=== PATIENT | female | born 1975 | race Caucasian/White ===

== ENCOUNTER 2016-05-04 21:41 | Emergency (ER) | payer OTHER ==
[~2016-05-04] VITALS: Ht 175.3 cm; Wt 81.8 kg
[~2016-05-04 21:41] MED LIST: AMOXICILLIN 50500 MG PO; CEPHALEXIN500 M1 PO; KETOPROFEN75 MG PO; LORTAB 5/500 501 TAB PO; MACROBID 1100 MG/CAP PO; METRONIDAZOLE500 MG PO; MOTRIN 800800 MG/TAB PO; NO HOME MEDICATIONS; NORCO 325 MG-51 TAB PO; NORCO 325 MG-7.1 TAB PO; PEPCID 20MG TAB20 MG PO; PHENERGAN 25 TA25 MG PO; PREDNISONE10 MG PO; PREDNISONE20 MG PO; PYRIDIUM200 M1 PO
[2016-05-04 21:54] VITALS: BP 140/78; TEMP 98.2
[2016-05-05 00:11] VITALS: PULSE 78
== END 2016-05-05 00:11 | disposition home or self-care (01) ==
LOC: COL.ER 21:41
DX: S90.122A Contusion of left lesser toe(s) without damage to nail, initial encounter (principal); S93.505A Unspecified sprain of left lesser toe(s), initial encounter; W22.03XA Walked into furniture, initial encounter; Y92.009 Unspecified place in unspecified non-institutional (private) residence as the place of occurrence of the external cause
CPT/HCPCS: J1885

== ENCOUNTER 2016-10-09 16:28 | Emergency (ER) | payer OTHER ==
[~2016-10-09] VITALS: Ht 175.3 cm; Wt 95.5 kg
[2016-10-09 16:30] VITALS: TEMP 97.3
[2016-10-09 17:13] LABS: BASO % 0.2 % (0.0-2.0); EOS # 0.1 (0.0-0.7); EOS % 0.8 % (0-4.0); GRAN # 9.9 (1.4-6.5); GRAN % 69.9 % (42.2-75.2); HEMATOCRIT 37.9 % (37.0-47.0); HEMOGLOBIN 12.7 g/dl (12.5-16.0); LYMPH # 3.2 (1.2-3.4); LYMPH % 22.7 % (20.0-51.0); MEAN CELL VOLUME 88 fl (80.0-100.0); MEAN CORPUSCULAR HEMOGLOBIN 30 pg (27.0-31.0); MEAN CORPUSCULAR HGB CONC 34 g/dl (33.0-37.0); MEAN PLATELET VOLUME 9.7 fl (7.4-10.4); MONO # 0.8 (0.1-0.6); MONO % 5.9 % (1.7-9.3); PLATELET COUNT 233 K/mm3 (130-400); RED BLOOD COUNT 4.31 M/mm3 (4.10-5.30); REDCELL DISTRIBUTION WIDTH-CV 13.9 % (11.5-14.5); WHITE BLOOD COUNT 14.2 K/mm3 (4.8-10.8)
[2016-10-09 17:31] LABS: ADJUSTED CALCIUM 9.2 mg/dL (8.4-10.2); ALANINE AMINOTRANSFERASE 23 U/L (9-52); ALBUMIN 4.3 gm/dL (3.5-5.0); ALKALINE PHOSPHATASE 75 U/L (50-136); ANION GAP 11 mmol/L (7-16); BILIRUBIN,TOTAL 0.6 mg/dL (0.0-1.0); BLOOD UREA NITROGEN 8 mg/dL (7-17); CALCIUM 9.4 mg/dL (8.4-10.2); CARBON DIOXIDE 22 mmol/L (22-30); CHLORIDE 104 mmol/L (98-107); CREATININE, serum 0.72 mg/dL (0.52-1.25); GLUCOSE 92 mg/dL (74-106); LIPASE 96 U/L (23-300); POTASSIUM 3.8 mmol/L (3.4-5.0); SODIUM 136 mmol/L (137-145); TOTAL PROTEIN 7.6 gm/dL (6.4-8.2)
[2016-10-09 17:40] LABS: C-REACTIVE PROTEIN < 0.5 mg/dL (0.0-0.9)
[2016-10-09 18:41] VITALS: BP 114/62; PULSE 60
[2016-10-09] MEDS ORDERED: PROTONIX 40MG T40 MG PO (18:50)
[2016-10-09] MEDS ORDERED: NORCO 325 MG-51 TAB PO (18:50)
== END 2016-10-09 19:10 | disposition home or self-care (01) ==
LOC: COL.ER 16:28
PROVIDERS: Emergency Medicine
DX: R10.13 Epigastric pain (principal); R10.11 Right upper quadrant pain; R63.0 Anorexia; R19.7 Diarrhea, unspecified
CPT/HCPCS: C9113; J1170; J2405; J7030; Q9967

== ENCOUNTER 2016-10-10 14:08 | Day surgery (SDC) | payer OTHER ==
[~2016-10-10] VITALS: Ht 175.3 cm; Wt 117.8 kg
[~2016-10-10 14:08] MED LIST changes: +PROTONIX 40MG T40 MG PO
[2016-10-10 14:46] VITALS: BP 138/83; PULSE 85; TEMP 98.7
[2016-10-10 16:15] VITALS: BP 124/94; PULSE 90; TEMP 98.2
[2016-10-10 16:30] VITALS: BP 120/82; PULSE 86
[2016-10-10 16:45] VITALS: BP 127/82; PULSE 84
[2016-10-10 17:00] VITALS: BP 124/71; PULSE 72
== END 2016-10-10 17:16 | disposition home or self-care (01) ==
LOC: SDCO 14:08
DX: K29.30 Chronic superficial gastritis without bleeding (principal); R93.3 Abnormal findings on diagnostic imaging of other parts of digestive tract; K30 Functional dyspepsia; R19.7 Diarrhea, unspecified; Z90.49 Acquired absence of other specified parts of digestive tract
CPT/HCPCS: J2250; J3010; J7030